=== PATIENT | male | born 1955 | race Asian ===

== ENCOUNTER → 2019-09-08 | Outpatient (CLI) | payer MEDICARE, OTHER | END | disposition home or self-care (01) | LOC: RADPV 10:49 | PROVIDERS: ATTEND Internal Medicine | DX: S33.5XXA Sprain of ligaments of lumbar spine, initial encounter (principal); X58.XXXA Exposure to other specified factors, initial encounter; Y93.89 Activity, other specified; Y92.89 Other specified places as the place of occurrence of the external cause; Y99.8 Other external cause status | CPT/HCPCS: 72100 ==

== ENCOUNTER → 2019-09-12 | Outpatient (CLI) | payer MEDICARE, OTHER | END | disposition home or self-care (01) | LOC: RADPV 09:16 | PROVIDERS: ATTEND Internal Medicine | DX: I70.0 Atherosclerosis of aorta (principal); N28.1 Cyst of kidney, acquired; R09.89 Other specified symptoms and signs involving the circulatory and respiratory systems | CPT/HCPCS: 76700 ==